=== PATIENT | female | born 1945 | race Caucasian/White ===

== ENCOUNTER → 2020-07-17 | Outpatient (CLI) | payer OTHER ==
[~2020-07-17] MED LIST: ADVAIR 100-501 EACH; ADVAIR 250-501 EACH; AMARYL2 MG PO; ARIMIDEX PO; B/P MED PO; CARAFATE1 GM/10 ML PO; CIPROFLOXACIN500 M1 PO; COZAAR 25 MG TA25 M1 PO; COZAAR 50 MG TA50 M2 PO; FIORICET; FIORICET 50-321 EACH; FLUOXETINE HCL40 MG; GABAPENTIN 100100 MG PO; HUMULIN R100 UNIT/M; HUMULIN R100 UNIT/M SUBQ; HUMULIN R500 UNIT/M SUBQ; HUMULINR100; HYDROCHLOROTH12.5 M1 PO; INSULIN; LANTUS; LEVEMIR; LEVEMIR SUBQ; LYRICA 50 MG50 MG; LYRICA 75 MG CA75 MG PO; LYRICA100 MG; MAG-OX 400 TAB400 M1 PO; METFORMIN HCL500 MG PO; NASAL & SINUS D30 MG PO; PEPCID AC20 M1 PO; PIOGLITAZONE15 MG; PROZAC20 MG PO; PROZAC40 MG; REMERON15 MG PO; REQUIP 1 MG TABL1 M1; REQUIP2 MG PO; REQUIP3 MG PO; [UNRECOGNIZED DRUG - OTHER] PO
[2020-07-17 15:57] LABS: CALCIUM 9.7 mg/dL (8.5-10.1); CREATININE 0.9 mg/dL (0.6-1.3); POTASSIUM 4.1 mmol/L (3.5-5.1)
[2020-07-17 16:02] LABS: ALBUMIN 3.2 g/dL (3.4-5.0); TOTAL PROTEIN 7.3 g/dL (6.4-8.2)
== END ==
LOC: M.CT 14:30
PROVIDERS: ATTEND Family Medicine
DX: K74.69 Other cirrhosis of liver (principal); K59.00 Constipation, unspecified; R16.1 Splenomegaly, not elsewhere classified; N28.1 Cyst of kidney, acquired; D25.9 Leiomyoma of uterus, unspecified; Z90.49 Acquired absence of other specified parts of digestive tract; Z88.8 Allergy status to other drugs, medicaments and biological substances